=== PATIENT | male | born 1980 | race Caucasian/White ===

== ENCOUNTER → 2016-09-25 | Outpatient (CLI) | payer BC ==
[2016-09-25 12:20] LABS: BASO % 0.6 %; BASO ABS # 0.03 K/uL (0-0.2); COMPLETE YES; EOS % 1.7 %; HEMATOCRIT 43.7 % (42-52); IG% 0.4 %; LYMPH % 31.7 %; LYMPH ABS # 1.71 K/uL (1.2-3.4); MEAN CORPUSCULAR HEMOGLOBIN 31.1 pg (25-34); MEAN CORPUSCULAR HGB CONC 36.2 g/dl (32-36); MEAN PLATELET VOLUME 9.7 fL (7.4-10.4); MONO % 6.9 %; NEUT % 58.7 %; PLATELET COUNT 330 K/uL (130-400); RED BLOOD COUNT 5.08 M/uL (4.7-6.1)
[2016-09-25 13:12] LABS: BLOOD UREA NITROGEN 13 mg/dl (7-18); BUN/CREATININE RATIO 14.2 (10-20); CALCIUM 9.3 mg/dl (8.5-10.1); CARBON DIOXIDE 27 mmol/L (21-32); CHLORIDE 103 mmol/L (98-107); CREATININE 0.89 mg/dl (0.60-1.40); GLUCOSE 79 mg/dl (70-99); POTASSIUM 3.8 mmol/L (3.5-5.1); SODIUM 137 mmol/L (136-145)
[2016-09-25 14:25] LABS: LYME DISEASE AB IGG NEG (NEG); LYME DISEASE AB IGM NEG (NEG)
== END | disposition home or self-care (01) ==
LOC: C.LABBFT 09:03
PROVIDERS: ATTEND Nurse Practitioner
DX: G43.909 Migraine, unspecified, not intractable, without status migrainosus (principal)

== ENCOUNTER → 2016-10-20 | Outpatient (CLI) | payer BC ==
--- NOTE | 2016-10-20 08:41 | DIAGNOSTIC IMAGING REPORT ---
MRI OF THE BRAIN WITHOUT CONTRAST CLINICAL HISTORY: Worsening headaches. COMPARISON STUDY: None. TECHNIQUE: Utilizing a 1.5 Sharona magnet and dedicated coil, multiplanar, multiecho imaging of the brain was performed without IV contrast. Thin cut FLAIR imaging was performed. FINDINGS: There are no areas of restricted diffusion. No acute intracranial hemorrhage, midline shift or mass effect is present. Brain volume is normal. Ventricular system is normal. Basilar cisterns are patent. There are no extra-axial collections. Flow-voids for the major intracranial vessels are present. No intracranial masses identified on this unenhanced exam. No areas of parenchymal signal abnormality are present. Calvarial signal is maintained. The adenoids are prominent. Orbits and sinuses are unremarkable. There is no fluid within the mastoid air cells. IMPRESSION: Normal unenhanced MRI of the brain. Electronically signed by: Robert Ventura M.D. 10/20/2016 8:40 AM Dictated Date/Time: 10/20/2016 8:34 AM
== END | disposition home or self-care (01) ==
LOC: C.MRI 07:58
PROVIDERS: ATTEND Physician Assistant
DX: R51 Headache (principal)

== ENCOUNTER 2018-02-27 12:53 | Inpatient (IN) ==
[2018-02-27] MEDS ORDERED: DIPHTHERIA/TETANUS/PERTUSSIS 0.5 ML SYR/VIAL IM ONE (13:36)
[2018-02-27] MEDS ORDERED: IBUPROFEN 600 MG TAB PO STA (13:36)
[2018-02-27] MEDS ORDERED: ACETAMINOPHEN 325 MG TAB PO STA (13:36)
--- NOTE | 2018-02-27 14:13 | XRay Report ---
XR hip RT 2-3V w pelvis CLINICAL HISTORY: fall, pain COMPARISON: None FINDINGS: Lumbar spine fusion hardware and right femoral intramedullary pin are partially imaged. No te is made of an acute impacted mildly displaced subcapital right femoral fracture. There is no acute fracture within the pelvis. There is no acute fracture of the left hip. IMPRESSION: 1. Acute mildly displaced impacted subcapital right femoral neck fracture. 2. Previous right femoral internal fixation with intramedullary pin. Electronically signed by: Robert Ventura M.D. 02/27/2018 2:12 PM
--- NOTE | 2018-02-27 14:13 | XRay Report ---
XR femur RT 2V routine CLINICAL HISTORY: 37 years-old Male presenting with fall, pain. TECHNIQUE: Frontal and lateral views of the right femur were obtained. COMPARISON: None. FINDINGS: Fracture of the subcapital right femoral neck, which is acute appearing on lateral view. Intramedulla ry nail fixation of the femoral diaphysis extending to the intercondylar region at the distal femur. Cerclage wire fixation of the proximal metadiaphysis, where there is significant abnormal underlying sclerosis. This may be posttraumatic in etiology or indicate prior infection. Knee joint grossly kelley ruent. IMPRESSION: 1. Findings concerning for acute subcapital fracture of the right femoral neck. 2. Internal fixation of the femoral diaphysis without evidence of hardware complication. Electronically signed by: Alejandro Hoyt M.D. 02/27/2018 2:11 PM
--- NOTE | 2018-02-27 14:15 | XRay Report ---
XR knee RT 3V CLINICAL HISTORY: fall, pain COMPARISON: None FINDINGS: Intramedullary pin within the right femur is partially imaged. The proximal right fibula i s diminutive. This is likely congenital. There is no acute fracture or joint effusion of the right kn ee. IMPRESSION: 1. No acute fracture or joint effusion of the right knee. 2. Partially visualized intramedullary pin within the right femur. Electronically signed by: Robert Ventura M.D. 02/27/2018 2:14 PM
[2018-02-27] MEDS ORDERED: ONDANSETRON INJ 2 MG/ML 2 ML VIAL IV STA (14:29)
[2018-02-27] MEDS ORDERED: MoRPHine SULFATE 2 MG/ML CARP IV PRN (14:29)
[2018-02-27] MEDS ORDERED: SODIUM CHLORIDE 0.9% 500 ML IV STA (14:29)
[2018-02-27] MEDS ORDERED: MoRPHine SULFATE 4 MG/ML 1 ML CARP\\VIAL ONE (14:36)
[2018-02-27 14:57] LABS: Hematocrit (blood only) 42.9 % (42-52); Hemoglobin 14.7 g/dL (14.0-18.0); Mean Corpuscular Hgb Conc 34.3 g/dL (32-36); Mean Corpuscular Volume 87.7 fL (80-100); Mean Platelet Volume 9.6 fL (7.4-10.4); Platelet Count 266 K/uL (130-400); RDW Coefficient of Variation 12.4 % (11.5-14.5); RDW Standard Deviation 39.7 fL (36.4-46.3); Red Blood Count 4.89 M/uL (4.7-6.1); White Blood Count 10.89 K/uL (4.8-10.8)
[2018-02-27 15:10] LABS: INR 1.1 (0.9-1.1); Partial Thromboplastin Time 24.8 Seconds (21.0-31.0); Prothrombin Time 11.4 Seconds (9.0-12.0)
[2018-02-27 15:11] LABS: BUN Creatinine Ratio 19.3 (10-20); Blood Urea Nitrogen 15 mg/dl (7-18); Calcium 9.3 mg/dl (8.5-10.1); Carbon Dioxide 27 mmol/L (21-32); Chloride 102 mmol/L (98-107); Est GFR (African American) 133.9; Est GFR (Non-African American) 115.5; Glucose 98 mg/dl (70-99); Potassium 3.8 mmol/L (3.5-5.1); Sodium 136 mmol/L (136-145)
--- NOTE | 2018-02-27 15:59 | History & Physical Report ---
Date of Service February 27, 2018 History of Present Illness Chief Complaint: Right Hip Pain Primary Care Provider: ROSY Perez Patient is a 37-year-old white male who states that while ambulating today, he slipped on the ice and fell onto his right side. At that point time he had immediate pain in his right hip and groin and was having some difficulty ambulating. He was brought to the emergency room and was seen by the staff. X- rays were taken and found that he had a subcapital right hip fracture. 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 He underwent several surgeries for lengthening procedures etc. He states that he can put weight on the right lower extremity but tends to favor his left due to some discomfort in the right hip and femur. Allergies Allergy/AdvReac Type Severity Reaction Status Date / Time No Known Allergies Allergy Unverified 02/27/18 14:31 Home Medications Home Medications Medication Instructions Recorded Confirmed Type diclofenac sodium 75 mg PO BID 02/27/18 02/27/18 History fluvoxamine 100 mg PO TID 02/27/18 02/27/18 History tramadol 50 mg PO BID PRN 02/27/18 02/27/18 History zaleplon 5 mg PO HS 02/27/18 02/27/18 History Past Med/Surg History Medical History Hx of fracture of leg Social History Feels Safe at Home: Yes Smoking Status: Never smoker Preferred Language: French Communication Ability: Effective Visual Impairment: No Limitations Hearing Ability: Normal Physical Exam 2 Vital Signs (Past 24 Hours): Last Vital Signs Temp 36.7 C 02/27/18 13:00 Pulse 68 02/27/18 14:57 Resp 20 02/27/18 14:57 BP 137/87 02/27/18 14:57 Pulse Ox 98 02/27/18 14:57
--- NOTE | 2018-02-27 16:57 | History and Physical Report ---
DATE OF ADMISSION: 02/27/2018 REASON FOR ADMISSION: Right hip fracture. HISTORY OF PRESENT ILLNESS: Patient is a 37-year-old white male who states that while ambulating today, he ended up slipping on the ice and falling onto his right side. He had some pain in his right hip and groin and was having difficulty ambulating. The pain was becoming somewhat increasing in nature, and he came to the Emergency Room to be evaluated. He was seen by the staff, and x-rays were taken, and it was found that he had a subcapital hip fracture of the right hip. Patient is going to require surgery and is now being admitted for further orthopedic care. 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 He states that he underwent multiple surgeries for lengthening and had some problems with further fracture with this after some of the surgeries. He states that he did eventually heal and has been able to put weight on the right lower extremity although he tends to favor his left. He has a history of scoliosis for which he has had a surgery as well. He has a history of migraine headache. He is on some medication for depression. He denies hypertension, diabetes mellitus, tuberculosis, hepatitis, COPD, rheumatic fever. PAST SURGICAL HISTORY: Multiple surgeries on the right proximal femur for lengthening procedures and also for a fracture repair. He does have a Fernández josie that was placed in with a cable noted at his last surgery on that proximal femur. He has had spinal fusion for scoliosis, and he states that he has had left knee surgery in the past as well. SOCIAL HISTORY: Patient does use alcohol on occasion. He states he does smoke medical marijuana. Otherwise he does not use tobacco in other forms. He is . FAMILY HISTORY: Mother has a history of diabetes mellitus type 2 and is living. Father is living and well. HOME MEDICATIONS: Diclofenac 75 mg p.o. b.i.d., fluvoxamine 100 mg p.o. t.i.d., tramadol 50 mg p.o. b.i.d. p.r.n., and zaleplon 5 mg p.o. at bedtime. ALLERGIES: NKDA. REVIEW OF SYSTEMS: Patient denies any recent fevers, chills, night sweats, unexplained weight loss or weight gain, no flu or cold-like symptoms. No increased cough or sputum production although he has had what he feels some allergies that have been somewhat bothersome over a period of time. He denies hemoptysis, no shortness of breath on exertion or at rest. He denies any chest pain, chest pressure, or irregular heartbeat. No history of asthma, bronchitis, pneumonia, tuberculosis. No history of unusual abdominal pain, nausea, vomiting, or diarrhea. No hematemesis or melena. No history of frequent urinary tract infections, hematuria, pyuria, dysuria, or renal calculi. Positive history of migraine headache and a history of depression. No history of seizure disorder. He denies any history of DVT or PE in the past. No history of blood dyscrasias. PHYSICAL EXAMINATION: GENERAL: Patient is a well-developed and well-nourished white male, alert and oriented x3, in no acute distress, pleasant and cooperative. SKIN: Warm and dry. Turgor is good. HEENT: Head is normocephalic and atraumatic. There is no scleral icterus or injection seen at this time. Nasal airway is patent. Oral mucosa is pink and moist. NECK: Supple, without adenopathy or bruits. CARDIOVASCULAR: Heart has a regular rate and rhythm, without murmurs. RESPIRATORY: Lungs are clear to auscultation. GASTROINTESTINAL: Abdomen is soft, round, and nontender. Bowel sounds are present x4. GENITALIA/RECTAL: Not performed at this time. MUSCULOSKELETAL: On examination of the right lower extremity, it is shorter compared to the left lower extremity, which was from a previous congenital deformity and attempts to lengthen the femur itself. He has multiple scars over the lateral aspect of the right hip and has a scar over the right knee that are all well healed. He is nontender at the knee on palpation and has limited range of motion due to right hip pain. Just a slight amount of internal and external rotation caused patient discomfort in the right hip and groin. Minimal attempts at flexion are the same. He has good range of motion of his right ankle and toes and has good sensation. The left lower extremity is essentially unaffected, and he has good range of motion at the hip, knee, and ankle. Upper extremities are within normal limits as far as range of motion with the shoulders, elbows, and wrists and are nontender. He denies any neck pain on palpation at this time and has good range of motion of his neck. He does not have any overt pain in his thoracic or lumbar spine this time but states he does have a history of low back pain at times but nothing has been accentuated since the fall. He has no gross motor or sensory loss seen at this time. DIAGNOSIS: Subcapital hip fracture, right hip. PLAN: I have discussed the case with Dr. Agudelo. Plan will be for ORIF of the right hip fracture with 7.3 cannulated screws. I discussed with the patient in detail, and he will be admitted for further orthopedic care.
[2018-02-27] MEDS ORDERED: ONDANSETRON INJ 2 MG/ML 2 ML VIAL IV PRN (17:00)
[2018-02-27] MEDS ORDERED: SODIUM CHLORIDE 0.9% 1000ML 1,000 ML IV SCH (17:00)
[2018-02-27] MEDS ORDERED: OXYCODONE HCL IR 5 MG TAB (IMMEDIATE RELEASE) PO PRN (17:00)
--- NOTE | 2018-02-27 17:10 | Emergency Department Note ---
Entered by Yasmin Michele acting as a scribe for History of Present Illness General Chief complaint: Leg Injury/Pain Stated complaint: FALL,HURT RT HIP,LEG AND KNEE Time Seen by Provider: 02/27/18 13:29 Source: patient Mode of arrival: ambulatory Limitations: no limitations History of Present Illness Onset (ago): hour(s) (1130 today) Location: lower extremity Pain Consistency: + constant Maximum Pain Intensity: 8 Exacerbated By: + movement Associated symptoms: + other (The patient complains of left leg pain. ) The patient is a 37 year old male who presents to the ED with complaints of constant right leg pain with an onset of 1130 today. The patient states that he fell on his right side. He notes that he is unable to bear weight on his right leg and is having difficulty ambulating. He states that he did not hit his head. The patient notes that he has a metal josie in his right leg and has broken it 3 times in the past. He states that his knee is semi-dislocated. The patient states that he thinks that his tetanus is up to date. Home Medications Home Medications Medication Instructions Recorded Confirmed Type diclofenac sodium 75 mg PO BID 02/27/18 02/27/18 History fluvoxamine 100 mg PO TID 02/27/18 02/27/18 History tramadol 50 mg PO BID PRN 02/27/18 02/27/18 History zaleplon 5 mg PO HS 02/27/18 02/27/18 History Allergies Allergy/AdvReac Type Severity Reaction Status Date / Time No Known Allergies Allergy Unverified 02/27/18 14:31 Past Med/Surg History Medical History Hx of fracture of leg 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 Migraines Scoliosis Social History Current Living Situation: Spouse Other Information That Helps Us Care for You: No Feels Safe at Home: Yes Safety Concerns: Feels Safe At This Time Smoking Status: Former smoker Do You Dip or Chew Tobacco: No Hx Alcohol Use: Yes Alcohol type: beer Alcohol Intake Frequency: a few times a week Hx Substance Use: No Beliefs That Will Affect Care: None Preferred Language: Faroese Communication Ability: Effective Review of Systems See HPI for pertinent positives & negatives. and A total of 6 systems reviewed and were otherwise negative Physical Exam Vital Signs Vital Signs - 24 hr 02/27/18 13:00 02/27/18 14:57 02/27/18 16:35 Temperature 36.7 C Temperature Source Oral Sepsis Recent Fever Within 48 Hours No Sepsis New/Unexplained Change in Mental Status No Sepsis Action Taken by Nursing No Action Required Pulse Rate [Right Finger] 68 Pulse Rhythm [Right Finger] Pulse Strength [Right Finger] Respiratory Rate 16 20 Respiratory Effort / Characteristics Non-Labored Respiratory Depth Normal Normal Respiratory Pattern Blood Pressure 135/72 Blood Pressure [Left Arm] 137/87 Blood Pressure Mean 93 Blood Pressure Mean [Left Arm] 103 Blood Pressure Position [Left Arm] Pulse Oximetry 98 98 Oxygen Delivery Method Room Air Room Air Room Air 02/27/18 17:10 Temperature 36.6 C Temperature Source Oral Sepsis Recent Fever Within 48 Hours Sepsis New/Unexplained Change in Mental Status Sepsis Action Taken by Nursing Pulse Rate [Right Finger] 62 Pulse Rhythm [Right Finger] Regular Pulse Strength [Right Finger] Normal Respiratory Rate 18 Respiratory Effort / Characteristics Non-Labored Spontaneous Respiratory Depth Normal Respiratory Pattern Regular Blood Pressure Blood Pressure [Left Arm] 123/69 Blood Pressure Mean Blood Pressure Mean [Left Arm] 87 Blood Pressure Position [Left Arm] Lying Pulse Oximetry 94 Oxygen Delivery Method Room Air GENERAL: Sitting in a wheelchair. No significant distress. NEURO: Awake and alert, no focal motor deficits. Oriented x3. SKIN: no rash or jaundice. EXTREMITIES: There is an abrasion to the right dorsal proximal 5th IP joint. No evidence for deformity. No pain to move the joint. Right ankle, right foot, and right tibfib are non-tender. There is no right knee joint effusion. Movement of the right knee produces minimal pain. He is tender to palpation the right lateral hip and right proximal femur. Course 1333: Past medical records reviewed. The patient was evaluated in room D2, and a complete history and physical examination were performed. 1433: I updated the patient. Upon reevaluation, the patient is resting comfortably. 1442: I reviewed the patient's case with [facility]. He states that they will do the admission and that we do not need to consult a hospitalist. Consultations Consultation #1: 1442: I reviewed the patient's case with Dr[facility]. He states that they will do the admission and that we do not need to consult a hospitalist. Time: 14:42 Administered Medications Hydromorphone HCl (Dilaudid) 0.5 mg IV Q4H PRN PRN Reason: Pain Stop: 03/13/18 16:59 Last Admin: 02/27/18 17:40 Dose: 0.5 mg Oxycodone HCl (Roxicodone Immediate Rel) 5 - 10 mg PO Q4H PRN; Protocol PRN Reason: Pain Stop: 03/13/18 18:29 Last Admin: 02/27/18 18:34 Dose: 10 mg Discontinued Medications Acetaminophen (Tylenol) 650 mg PO NOW STA Stop: 02/27/18 13:37 Last Admin: 02/27/18 13:42 Dose: 650 mg Diphtheria/Pertussis/Tetanus Vacc (Adacel) 0.5 ml IM .ONCE ONE Stop: 02/27/18 13:37 Last Admin: 02/27/18 13:43 Dose: 0.5 ml Sodium Chloride (Nss) 500 mls @ 999 mls/hr IV .Q31M STA Stop: 02/27/18 14:59 Last Infusion: 02/27/18 16:32 Dose: 0 mls/hr Admin: 02/27/18 14:50 Dose: 999 mls/hr Ibuprofen (Motrin) 600 mg PO NOW STA Stop: 02/27/18 13:37 Last Admin: 02/27/18 13:42 Dose: 600 mg Morphine Sulfate (Morphine Sulfate) Confirm Administered Dose 4 mg .ROUTE .STK- MED ONE Stop: 02/27/18 14:37 Last Admin: 02/27/18 14:50 Dose: 4 mg Ondansetron HCl (Zofran) 4 mg IV NOW STA Stop: 02/27/18 14:30 Last Admin: 02/27/18 14:50 Dose: 4 mg Medical Decision Making Differential Diagnosis Differential Diagnoses Include: Pelvis or femur fracture, hardware loosening, knee fracture or dislocation, hematoma, contusion, strain. Medical Records Attestation: I reviewed the patient's medical records. Home Medications Current Medication List: was personally reviewed by me Laboratory Data Attestation: I reviewed the patient's lab results. Result diagrams: 02/27/18 14:40 02/27/18 14:40 Lab Results 02/27/18 02/27/18 02/27/18 Range/Units 14:40 14:40 14:40 WBC 10.89 H (4.8-10.8) K/uL RBC 4.89 (4.7-6.1) M/uL Hgb 14.7 (14.0-18.0) g/dL Hct 42.9 (42-52) % MCV 87.7 (80-100) fL MCH 30.1 (25-34) pg MCHC 34.3 (32-36) g/dL RDW Std Deviation 39.7 (36.4-46.3) fL RDW Coeff of Ole 12.4 (11.5-14.5) % Plt Count 266 (130-400) K/uL MPV 9.6 (7.4-10.4) fL PT 11.4 (9.0-12.0) Seconds INR 1.1 (0.9-1.1) APTT 24.8 (21.0-31.0) Seconds PTT Ratio 1.0 Sodium 136 (136-145) mmol/L Potassium 3.8 (3.5-5.1) mmol/L Chloride 102 (98-107) mmol/L Carbon Dioxide 27 (21-32) mmol/L Anion Gap 7.0 (3-11) BUN 15 (7-18) mg/dl Creatinine 0.79 (0.6-1.4) mg/dl Est Cr Clr Drug Dosing Not Reportable Est GFR ( Amer) 133.9 Est GFR (Non-Af Amer) 115.5 BUN/Creatinine Ratio 19.3 (10-20) Glucose 98 (70-99) mg/dl Calcium 9.3 (8.5-10.1) mg/dl Blood Type Antibody Screen 02/27/18 Range/Units 17:19 WBC (4.8-10.8) K/uL RBC (4.7-6.1) M/uL Hgb (14.0-18.0) g/dL Hct (42-52) % MCV (80-100) fL MCH (25-34) pg MCHC (32-36) g/dL RDW Std Deviation (36.4-46.3) fL RDW Coeff of Ole (11.5-14.5) % Plt Count (130-400) K/uL MPV (7.4-10.4) fL PT (9.0-12.0) Seconds INR (0.9-1.1) APTT (21.0-31.0) Seconds PTT Ratio Sodium (136-145) mmol/L Potassium (3.5-5.1) mmol/L Chloride (98-107) mmol/L Carbon Dioxide (21-32) mmol/L Anion Gap (3-11) BUN (7-18) mg/dl Creatinine (0.6-1.4) mg/dl Est Cr Clr Drug Dosing Est GFR ( Amer) Est GFR (Non-Af Amer) BUN/Creatinine Ratio (10-20) Glucose (70-99) mg/dl Calcium (8.5-10.1) mg/dl Blood Type A Positive Antibody Screen NEGATIVE Imaging Data Radiologist's Impression: Radiology results as stated below per my review and the radiologist's interpretation: XR femur RT 2V routine CLINICAL HISTORY: 37 years-old Male presenting with fall, pain. TECHNIQUE: Frontal and lateral views of the right femur were obtained. COMPARISON: None. FINDINGS: Fracture of the subcapital right femoral neck, which is acute appearing on lateral view. Intramedullary nail fixation of the femoral diaphysis extending to the intercondylar region at the distal femur. Cerclage wire fixation of the proximal metadiaphysis, where there is significant abnormal underlying sclerosis. This may be posttraumatic in etiology or indicate prior infection. Knee joint grossly congruent. IMPRESSION: 1. Findings concerning for acute subcapital fracture of the right femoral neck. 2. Internal fixation of the femoral diaphysis without evidence of hardware complication. Electronically signed by: Alejandro Hoyt M.D. 02/27/2018 2:11 PM Dictated: 02/27/18 1410 Transcribed: 02/27/18 141 XR hip RT 2-3V w pelvis CLINICAL HISTORY: fall, pain COMPARISON: None FINDINGS: Lumbar spine fusion hardware and right femoral intramedullary pin are partially imaged. Note is made of an acute impacted mildly displaced subcapital right femoral fracture. There is no acute fracture within the pelvis. There is no acute fracture of the left hip. IMPRESSION: 1. Acute mildly displaced impacted subcapital right femoral neck fracture. 2. Previous right femoral internal fixation with intramedullary pin. Electronically signed by: Robert Ventura M.D. 02/27/2018 2:12 PM Dictated: 02/27/18 1410 Transcribed: 02/27/181409 XR knee RT 3V CLINICAL HISTORY: fall, pain COMPARISON: None FINDINGS: Intramedullary pin within the right femur is partially imaged. The proximal right fibula is diminutive. This is likely congenital. There is no acute fracture or joint effusion of the right knee. IMPRESSION: 1. No acute fracture or joint effusion of the right knee. 2. Partially visualized intramedullary pin within the right femur. Electronically signed by: Robert Ventura M.D. 02/27/2018 2:14 PM Dictated: 02/27/181412 Transcribed: 02/27/181412 Blood Pressure Blood Pressure Findings: Normal blood pressure MDM Narrative There is a very mild leukocytosis, this is likely consistent with his pain. No anemia. No coagulopathy. No significant electrolyte abnormality or kidney failure. Pelvis and right hip films do show a subcapital right hip fracture, no pelvic fracture. The right femur films do not show any evidence for displacement of his femur josie. On exam, there was no evidence for neurovascular compromise in the right lower extremity. The findings of the subcapital hip fracture were somewhat unexpected. When the fracture was noted, an IV was placed. The patient was ordered for morphine as needed for pain, Zofran for nausea. He received IV saline. He received an Adacel booster IM. I did speak with orthopedics, they did accept the patient under their service. I talked to the patient about my findings, case management has been involved. Impression & Plan Closed fracture of right hip Discharge Plan Visit Data *Final* Discharge Date/Time: 02/27/18 16:35 Chief Complaint: Leg Injury/Pain Stated Complaint: FALL,HURT RT HIP,LEG AND KNEE ED Provider: Wiliam Morales Discharge Problem: Closed fracture of right hip Patient Disposition: Admitted As Inpatient Discharge Instructions Interventions: ED Discharge Assessment Last Done: 02/27/18 16:35 The scribe's documentation has been prepared under my direction and personally reviewed by me in its entirety. I confirm that the note above accurately reflects all work, treatment, procedures, and medical decision making performed by me.
[2018-02-27] MEDS: HYDROmorphone INJ 0.5 MG/0.5 ML SYR IV PRN ×2 (17:40→21:45)
--- NOTE | 2018-02-27 17:44 | Anesthesiology Consultation ---
Date of Service February 27, 2018 Assessment & Plan (1) Encounter for pre-operative examination: History Surgery Operation Date: 02/28/18 07:00 Proposed Procedures p Right Hip Open Reduction Internal Fixation - Edward Agudelo MD Height/Weight Height: 5 ft 4 in Weight: 88.478 kg Allergies Allergy/AdvReac Type Severity Reaction Status Date / Time No Known Allergies Allergy Unverified 02/27/18 14:31 Medications Home Medications Medication Instructions Recorded Confirmed Last Taken diclofenac sodium 75 mg PO BID 02/27/18 02/27/18 02/26/18 21:00 fluvoxamine 100 mg PO TID 02/27/18 02/27/18 02/26/18 21:00 tramadol 50 mg PO BID PRN 02/27/18 02/27/18 02/19/18 zaleplon 5 mg PO HS 02/27/18 02/27/18 02/26/18 Active Medications Generic Name Dose Route Start Last Admin Trade Name Freq PRN Reason Stop Dose Admin Hydromorphone HCl 0.5 mg 02/27/18 17:00 02/27/18 17:40 Dilaudid IV 03/13/18 16:59 0.5 mg Q4H PRN Administration Pain Past Medical History Medical History Hx of fracture of leg Congenital shortening of left lower extremity Migraines Scoliosis Social History Smoking Status: Former smoker Do You Dip or Chew Tobacco: No Hx Alcohol Use: Yes Alcohol type: beer alcohol intake frequency: a few times a week Hx Substance Use: No substance use type: does not use Physical Exam Vital Signs Last Vital Signs Temp 36.6 C 02/27/18 17:10 Pulse 62 02/27/18 17:10 Resp 18 02/27/18 17:10 BP 123/69 02/27/18 17:10 Pulse Ox 94 02/27/18 17:10 Testing Laboratory Results 02/27/18 14:40 02/27/18 14:40 PT 11.4 Seconds (9.0-12.0) 02/27/18 14:40 INR 1.1 (0.9-1.1) 02/27/18 14:40 APTT 24.8 Seconds (21.0-31.0) 02/27/18 14:40
--- NOTE | 2018-02-27 17:55 | Anesthesiology Consultation ---
Date of Service February 27, 2018 Assessment & Plan Chart Review Chart Review: Acceptable Risk for Surgery History Surgery Operation Date: 02/28/18 07:00 Proposed Procedures p Right Hip Open Reduction Internal Fixation - Edward Agudelo MD Height/Weight Height: 5 ft 4 in Weight: 88.478 kg Allergies Allergy/AdvReac Type Severity Reaction Status Date / Time No Known Allergies Allergy Unverified 02/27/18 14:31 Medications Home Medications Medication Instructions Recorded Confirmed Last Taken diclofenac sodium 75 mg PO BID 02/27/18 02/27/18 02/26/18 21:00 fluvoxamine 100 mg PO TID 02/27/18 02/27/18 02/26/18 21:00 tramadol 50 mg PO BID PRN 02/27/18 02/27/18 02/19/18 zaleplon 5 mg PO HS 02/27/18 02/27/18 02/26/18 Active Medications Generic Name Dose Route Start Last Admin Trade Name Freq PRN Reason Stop Dose Admin Hydromorphone HCl 0.5 mg 02/27/18 17:00 02/27/18 17:40 Dilaudid IV 03/13/18 16:59 0.5 mg Q4H PRN Administration Pain Past Medical History Medical History Hx of fracture of leg 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 Migraines Scoliosis Social History Smoking Status: Former smoker Do You Dip or Chew Tobacco: No Hx Alcohol Use: Yes Alcohol type: beer alcohol intake frequency: a few times a week Hx Substance Use: No substance use type: does not use Physical Exam Vital Signs Last Vital Signs Temp 36.6 C 02/27/18 17:10 Pulse 62 02/27/18 17:10 Resp 18 02/27/18 17:10 BP 123/69 02/27/18 17:10 Pulse Ox 94 02/27/18 17:10 Testing Laboratory Results 02/27/18 14:40 02/27/18 14:40 PT 11.4 Seconds (9.0-12.0) 02/27/18 14:40 INR 1.1 (0.9-1.1) 02/27/18 14:40 APTT 24.8 Seconds (21.0-31.0) 02/27/18 14:40
[2018-02-27] MEDS: OXYCODONE HCL IR 5 MG TAB (IMMEDIATE RELEASE) PO PRN (18:34)
[2018-02-27] MEDS: FLUVOXAMINE MALEATE 50 MG TAB PO SCH (21:05)
[2018-02-27] MEDS: ZALEPLON 5 MG CAPSULE PO SCH (21:15)
[2018-02-28] MEDS: OXYCODONE HCL IR 5 MG TAB (IMMEDIATE RELEASE) PO PRN ×4 (00:18→22:36)
[2018-02-28] MEDS: HYDROmorphone INJ 0.5 MG/0.5 ML SYR IV PRN ×3 (02:21→20:21)
[2018-02-28] MEDS ORDERED: BUPIVACAINE 0.5 % 5 MG/1 ML PF 10ML VIAL ONE (06:45)
[2018-02-28] MEDS: FLUVOXAMINE MALEATE 50 MG TAB PO SCH ×3 (08:15→20:20)
[2018-02-28] MEDS ORDERED: ONDANSETRON INJ 2 MG/ML 2 ML VIAL ONE ×2 (12:29→14:02)
[2018-02-28] MEDS ORDERED: LIDOCAINE HCL 2% 2 ML VIAL/AMP(20MG/ML) INFIL ONE (12:29)
[2018-02-28] MEDS ORDERED: fentaNYL citrate 100 MCG/2 ML VIAL ONE (12:29)
[2018-02-28] MEDS ORDERED: MIDAZOLAM HCL 1 MG/ML 2ML VIAL ONE (12:29)
[2018-02-28] MEDS ORDERED: PROPOFOL IV EMULSION 10 MG/ML 20 ML VIAL IV ONE (12:29)
--- NOTE | 2018-02-28 14:03 | History & Physical Bridge Note ---
Date of Service February 28, 2018 History & Physical Bridge Note I have examined the patient, reviewed the History & Physical and in the interval since the performance of the History & Physical I have noted the following changes of clinical significance: no changes noted
[2018-02-28] MEDS ORDERED: HYDROmorphone INJ 0.5 MG/0.5 ML SYR IV STA ×2 (14:19→15:54)
[2018-02-28] MEDS ORDERED: fentaNYL citrate 100 MCG/2 ML VIAL IV PRN (14:20)
[2018-02-28] MEDS ORDERED: ONDANSETRON INJ 2 MG/ML 2 ML VIAL IV PRN (14:20)
[2018-02-28] MEDS ORDERED: HYDROmorphone INJ 2 MG/ML SYR/VIAL IV PRN (14:20)
[2018-02-28] MEDS ORDERED: ATROPINE SULFATE 0.1 MG/ML 10ML SYR IV PRN (14:20)
[2018-02-28] MEDS ORDERED: ONDANSETRON INJ 2 MG/ML 2 ML VIAL IV ONE (14:20)
[2018-02-28] MEDS ORDERED: ePHEDrine sulfate 50 MG/ML AMP IV PRN (14:20)
[2018-02-28] MEDS ORDERED: KETAMINE HCL INJ 50 MG/ML 10 ML VIAL ONE (15:04)
[2018-02-28] MEDS ORDERED: HYDROmorphone INJ 2 MG/ML SYR/VIAL ONE (15:07)
[2018-02-28] MEDS ORDERED: LORazepam 0.5 MG TAB PO PRN (18:49)
[2018-02-28] MEDS: ZALEPLON 5 MG CAPSULE PO SCH (20:31)
[2018-03-01] MEDS: HYDROmorphone INJ 0.5 MG/0.5 ML SYR IV PRN ×4 (00:24→20:37)
[2018-03-01] MEDS: OXYCODONE HCL IR 5 MG TAB (IMMEDIATE RELEASE) PO PRN ×3 (07:52→23:43)
[2018-03-01] MEDS: FLUVOXAMINE MALEATE 50 MG TAB PO SCH ×3 (09:51→21:16)
[2018-03-01] MEDS ORDERED: PHENYLEPHRINE 100MCG/ML 5ML SYR IV PRN (10:42)
[2018-03-01] MEDS ORDERED: ATROPINE SULFATE 0.1 MG/ML 10ML SYR IV PRN (10:42)
[2018-03-01] MEDS ORDERED: HYDROmorphone INJ 2 MG/ML SYR/VIAL IV PRN (10:42)
[2018-03-01] MEDS ORDERED: ONDANSETRON INJ 2 MG/ML 2 ML VIAL IV PRN (10:42)
[2018-03-01] MEDS ORDERED: ePHEDrine sulfate 50 MG/ML AMP IV PRN (10:42)
[2018-03-01] MEDS ORDERED: LABETALOL HCL IV 5 MG/ML 20ML IV PRN (10:42)
[2018-03-01] MEDS ORDERED: MIDAZOLAM HCL 1 MG/ML 2ML VIAL ONE (11:14)
[2018-03-01] MEDS ORDERED: fentaNYL citrate 100 MCG/2 ML VIAL ONE ×2 (11:14→12:51)
[2018-03-01] MEDS ORDERED: PROPOFOL IV EMULSION 10 MG/ML 20 ML VIAL IV ONE (11:17)
[2018-03-01] MEDS ORDERED: DEXAMETHASONE SOD INJ 4 MG/ML VIAL ONE (11:18)
[2018-03-01] MEDS ORDERED: LIDOCAINE HCL 2% 2 ML VIAL/AMP(20MG/ML) INFIL ONE (11:18)
[2018-03-01] MEDS ORDERED: ONDANSETRON INJ 2 MG/ML 2 ML VIAL ONE (11:18)
[2018-03-01] MEDS ORDERED: ROCURONIUM BROMIDE 10 MG/ML 5 ML VIAL ONE (11:18)
[2018-03-01] MEDS ORDERED: NEOSTIGMINE METHYLSULFATE 5 MG/5 ML SYR ONE (11:21)
[2018-03-01] MEDS ORDERED: GLYCOPYRROLATE 0.2 MG/ML VIAL ONE (11:21)
--- NOTE | 2018-03-01 11:27 | History & Physical Bridge Note ---
Date of Service March 01, 2018 History & Physical Bridge Note I have examined the patient, reviewed the History & Physical and in the interval since the performance of the History & Physical I have noted the following changes of clinical significance: no changes noted
[2018-03-01] MEDS: CEFAZOLIN 2000MG 2,000 MG/15 ML SYR IV SCH ×3 (11:50→20:37)
[2018-03-01] MEDS ORDERED: PHENYLEPHRINE 100MCG/ML 5ML SYR ONE (11:56)
[2018-03-01] MEDS ORDERED: NALOXONE HCL 0.4 MG/1 ML VIAL/CARP IV PRN (11:56)
[2018-03-01] MEDS ORDERED: BUPIVACAINE 0.5 % 5 MG/1 ML MPF 30ML VIAL ONE (12:49)
--- NOTE | 2018-03-01 12:57 | Post Operative Brief Note ---
Immediate Post Op Note v1 Date of Surgery March 01, 2018 Pre & Post Diagnosis Operation Date: 02/28/18 07:00 <No data on this case meets the specified criteria> Operation Date: 03/01/18 11:10 Pre-Op Diagnosis: RIGHT Minimally Displaced SUBCAPITAL HIP FRACTURE Post-Op Diagnosis: RIGHT Minimally Displaced SUBCAPITAL HIP FRACTURE Procedure Operation Date: 02/28/18 07:00 <No data on this case meets the specified criteria> Operation Date: 03/01/18 11:10 Actual Procedures p Right Hip Open Reduction Internal Fixation with cannulated screws x3 (Right) - Kel Parisi DO Surgeon Kel Parisi DO Boat Engine Mechanic Reno Carvalho PA-C Estimated Blood Loss 10 Findings Consistent with Post-Op Diagnosis Specimens None Anesthesia Type General Complications none Disposition Accompanied Patient To Recovery: No Disposition: Recovery Room Overlapping Procedure I was present for: the critical portions of procedure. I was immediately available: during the entire case.
[2018-03-01] MEDS: fentaNYL citrate 100 MCG/2 ML VIAL IV PRN ×4 (13:21→13:36)
--- NOTE | 2018-03-01 13:31 | Fluoroscopy Report ---
FL hip RT 2-3V CLINICAL HISTORY: RT ORIF HIP COMPARISON STUDY: 02/27/2018 FLUOROSCOPY TIME: 81 seconds. NUMBER OF FLUOROSCOPIC IMAGES: 2 FINDINGS: An intramedullary right femoral josie is again visualized. There is been interval placement o f 3 cannulated screws traversing the subcapital right hip fracture. IMPRESSION: Intraoperative fluoroscopic spot images demonstrating internal fixation of a subcapital hip fracture with 3 cannulated screws Electronically signed by: Jalil Ibanez M.D. 03/01/2018 1:30 PM
--- NOTE | 2018-03-01 13:53 | Anesthesiology Progress Note ---
Date of Service March 01, 2018 Anesthesia Post Procedure Vital Signs Vital Signs: Temp Pulse Resp BP Pulse Ox 03/01/18 13:45 36.4 C L 68 16 121/81 94 03/01/18 13:35 76 16 136/71 98 03/01/18 13:25 75 16 160/75 H 97 03/01/18 13:15 65 16 154/88 H 98 03/01/18 13:06 36.8 C 68 16 153/82 H 100 03/01/18 10:49 37.4 C 72 16 142/82 H 94 03/01/18 07:48 36.8 C 78 16 141/79 H 96 02/28/18 23:30 37.1 C 74 18 121/70 95 02/28/18 16:00 63 22 138/82 95 Pain Intensity Right Hip: Pain Intensity: 2 Notes Mental Status: alert / awake / arousable Patient Amnestic to Procedure: Yes Nausea / Vomiting: adequately controlled Pain: adequately controlled Airway Patency, RR, SpO2: stable & adequate BP & HR: stable & adequate Hydration State: stable & adequate Anesthetic Complications: no major complications apparent and Pt Satisfied with anesthetic care
--- NOTE | 2018-03-01 13:54 | XRay Report ---
XR hip RT min 2V HISTORY: 37 years-old Male Post-Operative implant position right hip fracture. Status post fixation. COMPARISON: Pelvis and right hip radiographs 02/27/2018 TECHNIQUE: AP and crosstable lateral views of the right hip FINDINGS: Status post placement of 3 cannulated screws traversing the right femoral head and neck. Fixation of the previously described subcapital fracture. Intramedullary josie about the femur with proximal cercla ge wires are noted. Cortical thickening about the proximal femoral diaphysis suggests healed fracture deformity. Lateral skin li are noted with expected postsurgical soft tissue swelling and deep t issue air. Degenerative changes are noted about the knee. Diminutive morphology about the imaged fibu la. IMPRESSION: Satisfactory alignment status post fixation of the subcapital right femoral fracture. The above report was generated using voice recognition software. It may contain grammatical, syntax o r spelling errors. Electronically signed by: Mc Morin M.D. 03/01/2018 1:53 PM
--- NOTE | 2018-03-01 19:12 | Operative Report ---
DATE OF OPERATION: 03/01/2018 PREOPERATIVE DIAGNOSIS: Right minimally displaced subcapital femoral neck fracture. POSTOPERATIVE DIAGNOSIS: Right minimally displaced subcapital femoral neck fracture. PROCEDURE: Open reduction internal fixation right minimally displaced subcapital femoral neck fracture using cannulated screws x3. SURGEON: Kel Parisi DO CHAIN MENDER: Reno Carvalho PA-C who was present for patient positioning, sterile prep and drape, management of retractors and instruments. He was present through the critical portions of the case including wound closure, application of sterile dressing and transport of the patient to recovery. ANESTHESIA: General LMA. SPECIMENS: None. DRAINS: None. COMPLICATIONS: None. BLOOD LOSS: 5 mL PERTINENT HISTORY: This is a 37-year-old gentleman who sustained a fall on his right hip. He has a history of some congenital abnormalities and had prior surgery to his right femur and lower extremity. He had radiographs at [facility] demonstrating a minimally-displaced subcapital femoral neck fracture, right hip. He was admitted to the hospital and scheduled for surgery as indicated. All potential risks, benefits, complications, alternatives, rehab, potential for incomplete relief of symptoms, need for further surgery, DVT, history of pain, swelling, scarring, weakness, neurovascular injury, wound complications, hardware failure, nonunion, malunion, bone fracture were discussed with the patient and his family. All made well aware this is a salvage procedure to prevent him from needing an early total hip replacement due to his young age and other congenital issues with other hardware concerns already implanted in his body. The patient and family decided to proceed with the procedure as indicated. PROCEDURE: The patient was taken to the operative suite, placed supine on the operating room table. The consent was reviewed and proper operative site was identified and then anesthesia was administered appropriately. Next, the patient was placed on the fracture table. The affected limb was placed to padded boot traction and the unaffected leg was placed in a well leg mead, flexed and abducted and slightly externally rotated. The well leg was then padded and protected. All other bony prominences were properly padded and protected. The post was padded in the peroneum. Next, the affected limb was placed under appropriate traction using the fracture table and initial reduction was performed under live fluoroscopic assistance. Next, the affected hip was then sterilely prepped and draped in usual fashion. Next, the greater trochanter of the hip was visualized under C-arm fluoroscopy. A 10 blade scalpel incision was made along the lateral aspect of the hip inferior to the greater trochanter. This incision was then carefully deepened through subcutaneous tissue. Meticulous hemostasis was achieved with electrocautery. Next, the iliotibial band was then incised with a 10 blade scalpel and appropriate bleeders were cauterized as well. Next, using live fluoroscopic assistance 7.3 mm cannulated guide pin was placed into the central aspect of the lateral femur directed into the inferior one-third of the femoral neck and head, inferior and central both confirmed with AP and lateral projections. Next, the cannulated guide was then used to place 2 further 7.3 mm cannulated screw guide pins superior anterior and superior posterior in relation to the inferiorly placed guide pin under AP and lateral live fluoroscopic assistance. Next, the guide pins were all noted to be within 5 mm of the subchondral bone on AP and lateral projections. This was then followed by measurement of the appropriate length for planned screw implantation and then the lateral cortex was drilled, this followed by countersinking of the planned screw sites followed by implantation of the 7.3 mm cannulated screws of appropriate length. This was confirmed under live fluoroscopic assistance. Next, a hand screwdriver was used to tighten the screws to fully seat the fracture and compress it confirmed using x-ray. Next, the guide pins were removed. The wound was copiously irrigated with sterile normal saline. Final x-rays obtained in both AP and lateral projections, followed by final irrigation with sterile normal saline, closure of the fascia with interrupted #1 Vicryl sutures, closure of the dermis with buried interrupted 2-0 Vicryl. The skin was then closed using skin li. A sterile compressive dressing was applied. The patient was awakened and taken to recovery in stable condition. I attest to the content of the Intraoperative Record and any orders documented therein. Any exception s are noted below.
[2018-03-01] MEDS: ZALEPLON 5 MG CAPSULE PO SCH (21:16)
[2018-03-01] MEDS: ASPIRIN 81 MG ECTAB PO SCH (21:16)
[2018-03-02] MEDS: HYDROmorphone INJ 0.5 MG/0.5 ML SYR IV PRN (02:24)
[2018-03-02] MEDS: CEFAZOLIN 2000MG 2,000 MG/15 ML SYR IV SCH (04:34)
[2018-03-02] MEDS: OXYCODONE HCL IR 5 MG TAB (IMMEDIATE RELEASE) PO PRN ×3 (04:34→18:10)
[2018-03-02 07:14] LABS: Hematocrit (blood only) 38.4 % (42-52); Hemoglobin 13.3 g/dL (14.0-18.0); Immature Granulocytes # (auto) 0.01 K/uL (0.00-0.02); Immature Granulocytes % (auto) 0.1 %; Lymphocytes # (auto) 0.78 K/uL (1.2-3.4); Lymphocytes % (auto) 7.4 %; Mean Corpuscular Hgb Conc 34.6 g/dL (32-36); Mean Corpuscular Volume 87.5 fL (80-100); Mean Platelet Volume 9.3 fL (7.4-10.4); Monocytes # (auto) 0.46 K/uL (0.11-0.59); Monocytes % (auto) 4.4 %; Neutrophils % (auto) 88.1 %; Platelet Count 264 K/uL (130-400); RDW Standard Deviation 38.8 fL (36.4-46.3); Red Blood Count 4.39 M/uL (4.7-6.1); White Blood Count 10.55 K/uL (4.8-10.8)
[2018-03-02 07:46] LABS: Calcium 8.9 mg/dl (8.5-10.1); Est GFR (African American) 133.2; Est GFR (Non-African American) 114.9; Potassium 3.7 mmol/L (3.5-5.1)
--- NOTE | 2018-03-02 08:14 | Orthopedic Progress Note ---
Date of Service March 02, 2018 Assessment & Plan (1) Closed fracture of right hip: POD#1 ORIF right femoral neck fracture -Pain management -DVT prophylaxis -PT/OT -TTWB on operative leg -D/C planning-home with home health possibly tomorrow Subjective Patient resting comfortably in bed. No complaints at this time. Denies chest pain, sob, dizziness. Physical Exam 2 Vital Signs (Past 24 Hours): Last Vital Signs Temp 36.8 C 03/02/18 07:50 Pulse 59 L 03/02/18 07:50 Resp 16 03/02/18 07:50 BP 127/73 03/02/18 07:50 Pulse Ox 94 03/02/18 07:50 Physical Exam: Dressing c/d/i, no calf tenderness, toes mobile, n/V status and senstation intact. _ (1) Closed fracture of right hip Encounter type: initial encounter Fracture healing: Qualified Code(s): S72.001A - Fracture of unspecified part of neck of right femur, initial encounter for closed fracture
[2018-03-02] MEDS: ASPIRIN 81 MG ECTAB PO SCH ×2 (08:25→20:29)
[2018-03-02] MEDS: FLUVOXAMINE MALEATE 50 MG TAB PO SCH ×3 (08:25→20:29)
[2018-03-02] MEDS ORDERED: Nursing to Pharmacy Communication ONE (09:39)
--- NOTE | 2018-03-02 11:05 | Anesthesiology Progress Note ---
Date of Service March 02, 2018 Anesthesia Post Procedure Vital Signs Vital Signs: Temp Pulse Resp BP Pulse Ox 03/02/18 07:50 36.8 C 59 L 16 127/73 94 03/01/18 23:22 37.0 C 89 18 135/76 90 03/01/18 19:22 36.8 C 103 H 18 144/84 H 91 03/01/18 17:11 36.8 C 89 18 120/82 91 03/01/18 16:20 36.6 C 86 16 135/88 96 03/01/18 15:05 36.6 C 94 H 16 124/89 96 03/01/18 14:25 79 17 144/84 H 97 03/01/18 14:08 36.9 C 84 16 154/82 H 95 03/01/18 13:45 36.4 C L 68 16 121/81 94 03/01/18 13:35 76 16 136/71 98 03/01/18 13:25 75 16 160/75 H 97 03/01/18 13:15 65 16 154/88 H 98 03/01/18 13:06 36.8 C 68 16 153/82 H 100 Pain Intensity Right Hip: Pain Intensity: 5 Notes Mental Status: alert / awake / arousable and participated in evaluation Patient Amnestic to Procedure: Yes Nausea / Vomiting: adequately controlled Pain: adequately controlled Airway Patency, RR, SpO2: stable & adequate BP & HR: stable & adequate Hydration State: stable & adequate Anesthetic Complications: no major complications apparent
[2018-03-02] MEDS: ZALEPLON 5 MG CAPSULE PO SCH (20:41)
[2018-03-03] MEDS: OXYCODONE HCL IR 5 MG TAB (IMMEDIATE RELEASE) PO PRN ×2 (02:54→08:07)
--- NOTE | 2018-03-03 08:06 | Orthopedic Progress Note ---
Date of Service March 03, 2018 Assessment & Plan (1) Closed fracture of right hip: POD#2 ORIF right femoral neck fracture -Pain management -DVT prophylaxis -PT/OT -TTWB on operative leg -D/C planning-home with home health possibly today if PT goes well. Subjective Patient resting comfortably in bed. No complaints at this time. Denies chest pain, sob, dizziness. Physical Exam 2 Vital Signs (Past 24 Hours): Last Vital Signs Temp 36.8 C 03/03/18 07:02 Pulse 60 03/03/18 07:02 Resp 16 03/03/18 07:02 BP 122/74 03/03/18 07:02 Pulse Ox 96 03/03/18 07:02 Physical Exam: Dressing c/d/i, toes mobiel, no calf tenderness, sensation and N/V status intact _ (1) Closed fracture of right hip Encounter type: initial encounter Fracture healing: Qualified Code(s): S72.001A - Fracture of unspecified part of neck of right femur, initial encounter for closed fracture
[2018-03-03] MEDS: FLUVOXAMINE MALEATE 50 MG TAB PO SCH (08:08)
[2018-03-03] MEDS: ASPIRIN 81 MG ECTAB PO SCH (08:08)
--- NOTE | 2018-03-04 08:37 | Discharge Summary ---
Date of Service March 08, 2018 Admission HPI Per Admitting Provider Patient is a 37-year-old white male who states that while ambulating today, he slipped on the ice and fell onto his right side. At that point time he had immediate pain in his right hip and groin and was having some difficulty ambulating. He was brought to the emergency room and was seen by the staff. X- rays were taken and found that he had a subcapital right hip fracture. 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 He underwent several surgeries for lengthening procedures etc. He states that he can put weight on the right lower extremity but tends to favor his left due to some discomfort in the right hip and femur. Principal Diagnosis right subcapital hip fracture Discharge Exam Constitutional WD/WN, vitals as above Musculoskeletal Hip: + surgical incision (Well approximated hip incision. Thigh was soft.); hip normal to inspection, no skin erythema and no ecchymosis Neurologic normal touch/pain/proprioception Discharge Data Allergies Allergy/AdvReac Type Severity Reaction Status Date / Time No Known Allergies Allergy Unverified 02/27/18 14:31 Consultations 02/27/18 14:56 ED Decision to Admit Stat 02/27/18 17:00 Consult Case Management - Discharge Planning Routine 02/27/18 17:47 Consult Anesthesiology Routine 03/01/18 11:56 Consult Case Management - Discharge Planning Routine Procedures Performed Operation Date: 02/28/18 07:00 <No data on this case meets the specified criteria> Operation Date: 03/01/18 11:10 Actual Procedures p Right Hip Open Reduction Internal Fixation(Right) - Kel Parisi DO Ordered Studies 03/01/18 14:00 FL fluoroscopy <1hr Routine FL hip RT 2-3V Routine Hospital Course (1) Closed fracture of right hip: The patient was admitted with the hip fracture. He underwent ORIF of the right hip fx with 3 7.3 mm cannulated screws. He progressed well with pain control and ambulating with toe touch WB on the RLE. He was doing well on POD # 2 and he was discharged. Below was the plan for POD #2 after seeing him in his room. POD#2 ORIF right femoral neck fracture -Pain management -DVT prophylaxis -PT/OT -TTWB on operative leg -D/C planning-home with home health possibly today if PT goes well. Total Time Total Time Spent Total Time Spent (In Minutes): 20 Total Time Includes: Examination of the Patient and Discharge Planning Discharge Plan Discharge Items Patient Disposition: Home - Home Health Services Reason For Visit: RIGHT SUBCAPITAL HIP FRACTURE Discharge Diagnosis: Right subcapital hip fracture Discharge Goals: Decrease discomfort and Improve function Activity: Per 'Additional Instructions' section Non-emergency contact: Surgeon Call non-emergency contact if: you have any medication questions, your pain is not controlled, your pain is concerning for you, you have a fever, your temperature is above 101, your wound has increased redness, your wound has increased drainage and your wound pain has increased Diet: Regular Addtl Provider Instructions: [facility] DISCHARGE INSTRUCTIONS: HIP FRACTURE SELF CARE INSTRUCTIONS: A. You are to ambulate with a walker or crutches for approximately 6 weeks. B. You are TOE TOUCH WEIGHT BEARING on your operative lower extremity for at least 6 weeks. C. Wear low heeled shoes with non-slip soles D. Be sure that your floors are free of things that could trip you throw rugs, electrical cords, and small objects. Avoid wet and waxed floors, especially with crutches/walker/cane. E. Try to walk several times a day with rest periods between. F. You may shower 48 hours after surgery and get the incision area wet, but DO NOT soak or submerge incision area in water. (No baths, swimming pools, hot tubs ) G. You may have a large, band-aid like dressing over your incision (Aquacel). This will remain on your incision for 7 days, and then can be removed. You CAN shower with this on. If incision is leaking through the dressing, please call the office . H. Do NOT apply soap or any ointment/lotions directly over incision. I. You may use ice as needed to operative site. SPECIAL CARE INSTRUCTIONS: VERY IMPORTANT TO READ AND REVIEW A. You may be at risk for phlebitis or blood clots. a. Wear surgical stockings (KAYLA hose) for 2 weeks after surgery to improve circulation and reduce swelling. b. Take ASPIRIN 81 mg twice daily for 4 weeks or as directed. This is your blood thinner. c. If you are on Coumadin- you will have daily/weekly blood work to monitor your levels. This will be done by either your family physician/ camera repairman (if you are on Coumadin chronically) versus your orthopedic surgeon. Expect a phone call the day of or the day after your blood work is drawn to adjust your dose accordingly. B. There are a few signs you need to watch for after you are home. Call [facility] at [phone] if you experience any of the following: a. If you have a temperature of 101 degrees or higher. b. Sudden increase in pain in your hip not relieved by rest or pain medication. c. Any fluid or drainage from the incision; redness of the incision. d. Shortness of breath or chest pain. B. Please call [facility] at [phone] if you have any questions or concerns about your operation or recovery. C. Call your physician if: a. Temperature is greater than 101 degrees (F). b. Pain is not relieved by prescribed pain medications. c. Increase drainage or redness from incision. d. Unanswered questions or concerns. D. Pain Medication: a. You will be prescribed pain medication upon discharge that should last till your first post-operative appointment. b. If you experience nausea and/or skin rash, discontinue this medication and contact our office for an alternative medication. c. Caution- narcotic pain medication can cause constipation. FOLLOW UP VISIT: Please call [facility] at [phone] to schedule a follow up appointment with Dr. Parisi or his PA 10-14 days from the date of your surgery date. Prescriptions: New aspirin [Ecotrin Low Strength] 81 mg Tablet,Delayed Release (Dr/Ec) 81 mg PO BID Qty: 60 RF: 0 oxycodone 5 mg Tablet 5 - 10 mg PO .Q4H-6H MDD 6 PRN (Reason: pain) Qty: 30 RF: 0 acetaminophen 500 mg tablet 1,000 mg PO Q8H Qty: 60 RF: 0 Continue fluvoxamine 100 mg tablet 100 mg PO TID RF: 0 zaleplon 5 mg capsule 5 mg PO HS RF: 0 Discontinued tramadol 50 mg tablet 50 mg PO BID PRN (Reason: Pain) RF: 0 diclofenac sodium 75 mg tablet,delayed release (DR/EC) 75 mg PO BID RF: 0 Stand-Alone Forms: [employer], Opioid Pain Management Discharge Orders: Discharge Order (Routine); Ordered 03/03/18 Ordered By: Jeremie Orellana Admission Data Admit Date/Time: 02/27/18 15:55 Attending Provider: Edward Agudelo Admit Provider: Edward Agudelo Primary Care Provider: Vickie Ramos Other Providers: Kel Parisi William H Service: Surgical Services Other Interventions: Discharge Summary Assessment (RN) Last Done: 03/03/18 09:27 Pending Studies at Discharge: No DC Date/Time DO NOT enter until pt leaves facility: 03/03/18 13:37
== END 2018-03-03 13:37 | disposition home health service (06) | DRG 482 ==
LOC: ED 12:53 → 3N 15:55
DX: M41.9 Scoliosis, unspecified; Z98.1 Arthrodesis status; Y93.01 Activity, walking, marching and hiking; Y92.89 Other specified places as the place of occurrence of the external cause; G43.909 Migraine, unspecified, not intractable, without status migrainosus; S72.011A Unspecified intracapsular fracture of right femur, initial encounter for closed fracture; W00.0XXA Fall on same level due to ice and snow, initial encounter; Z87.891 Personal history of nicotine dependence